=== PATIENT | female | born 1980 | race Caucasian/White ===

== ENCOUNTER 2017-08-07 07:44 | Emergency (ER) | END 2017-08-07 12:50 | disposition home or self-care (01) ==

== ENCOUNTER 2017-08-23 21:28 | Emergency (ER) | END 2017-08-24 02:20 | disposition home or self-care (01) ==

== ENCOUNTER 2017-08-26 19:27 | Emergency (ER) | END 2017-08-27 01:19 | disposition home or self-care (01) ==

== ENCOUNTER 2017-08-30 02:21 | Observation (INO) | END 2017-08-30 18:05 | disposition home or self-care (01) ==